=== PATIENT | female | born 1985 | race Caucasian/White ===

== ENCOUNTER 2016-11-11 16:08 | Emergency (ER) | payer BC ==
[2016-11-11 16:31] VITALS: BP 149/98
--- NOTE | 2016-11-11 17:16 | UC ---
UC General HPI - History of Current Complaint Chief Complaint: UCBackPain Stated Complaint: FLANK PRESSURE,DISCOMFORT Time Seen by Provider: 11/11/16 16:55 Hx Obtained From: Patient Onset/Duration: Sudden Onset, Lasting Days Timing: Constant Onset Severity: Moderate Current Severity: Moderate Associated Signs & Symptoms: Positive: Back Pain - Allergy/Home Medications Allergies/Adverse Reactions: Allergies Allergy/AdvReac Type Severity Reaction Status Date / Time No Known Allergies Allergy Verified 11/11/16 16:27 PMH/Surg Hx/FS Hx/Imm Hx Previously Healthy: Yes Endocrine History Of: Denies: Diabetes, Thyroid Disease Cardiovascular History Of: Denies: Cardiac Disorders, Hypertension Respiratory History Of: Denies: COPD, Asthma GI/ History Of: Denies: Ulcer - Surgical History Surgical History: None - Family History Known Family History: Negative: Cardiac Disease, Hypertension - Social History Alcohol Use: None Substance Use Type: None Smoking Status (MU): Former Smoker Type: Cigarettes When Did the Patient Quit Smoking/Using Tobacco: 4 yrs ago - Immunization History Most Recent Influenza Vaccination: May 2015 Most Recent Tetanus Shot: 02/01/15 Most Recent Pneumonia Vaccination: none Review of Systems Constitutional: Negative Skin: Negative Eyes: Negative ENT: Negative Respiratory: Negative Cardiovascular: Negative Gastrointestinal: Negative Genitourinary: Negative Motor: Negative Neurovascular: Negative Musculoskeletal: Myalgia Neurological: Negative Psychological: Anxious All Other Systems Reviewed And Are Negative: Yes Physical Exam Triage Information Reviewed: Yes Appearance: Well-Appearing, Well-Nourished, Pain Distress Vital Signs: Initial Vital Signs Temp 98.4 F 11/11/16 16:27 Pulse 98 11/11/16 16:27 Resp 18 11/11/16 16:27 BP 149/98 11/11/16 16:27 Pulse Ox 97 11/11/16 16:27 Vital Signs Reviewed: Yes Eye Exam: Normal ENT Exam: Normal Dental Exam: Normal Neck exam: Normal Respiratory Exam: Normal Respiratory: Positive: Chest non-tender, Lungs clear, Normal breath sounds Cardiovascular Exam: Normal Cardiovascular: Positive: RRR, No Murmur, Pulses Normal Abdominal Exam: Normal Abdomen Description: Positive: Nontender, No Organomegaly, Soft, CVA Tenderness (R) - neg, CVA Tenderness (L) - neg Bowel Sounds: Positive: Present Musculoskeletal: Positive: Strength Intact, ROM Intact, No Edema, Other: - Left SI joint 1 inch higher then the right. tender under the left ridge of rib cage. side bend to the right increases pain, Neurological Exam: Normal Neurological: Positive: Alert, Muscle Tone Normal Psychological Exam: Normal Skin Exam: Normal Course/Dx - Course Course Of Treatment: hx obtained, exam performed, meds reviewed, educated on proper stretching of back and UA obtained and is negative. patient is relieved and has a follow up appointment with new PCP in 3 days - Differential Dx - Multi-Symptom Provider Diagnoses: anxiety. muscle spasm Discharge - Discharge Plan Condition: Stable Disposition: HOME Patient Education Materials: Musculoskeletal Pain (ED) Additional Instructions: 1. Your urine was negative for infection or hematuria. 2. I recommend that you stretch you back daily and frequently switch from standing to sitting at work. 3. look up [employer] on you tube for great back exercises that will help darlyn and lucia.
== END 2016-11-11 17:23 | disposition home or self-care (01) ==
LOC: UCEAST 16:08
DX: M62.838 Other muscle spasm (principal); F41.9 Anxiety disorder, unspecified; Z87.891 Personal history of nicotine dependence
CPT/HCPCS: 81003; 99211; G0463

== ENCOUNTER 2017-09-14 09:02 | Emergency (ER) | payer BC ==
[2017-09-14] MEDS ORDERED: LORazepam INJ* 2 MG/ML 1 ML VIAL IV PUSH ONE (09:56)
[2017-09-14 10:11] LABS: Urine Appearance Clear; Urine Blood Negative (Negative); Urine Color Yellow; Urine Ketones Negative (Negative); Urine Protein Negative (Negative); Urine Specific Gravity 1.005 (1.010-1.030); Urine Urobilinogen Negative (Negative)
[2017-09-14 10:33] LABS: ABS Basophils 0 10^3/ul (0-0.2); ABS Eosinophils 0 10^3/ul (0-0.6); ABS Lymphocytes 1.5 10^3/ul (1.0-4.8); ABS Monocytes 0.4 10^3/ul (0-0.8); ABS Neutrophils 6.7 10^3/ul (1.5-7.7); ABS Nucleated RBC 0 10^3/ul; Eosinophil % 0.2 % (0-6); Hematocrit 40 % (35-47); Hemoglobin 13.6 g/dl (12.0-16.0); Lymphocyte % 17.5 % (25-47); Mean Corpuscular HGB Conc 34 g/dl (31-36); Mean Corpuscular Hemoglobin 30 pg (27-31); Mean Corpuscular Volume 88 fL (80-97); Mean Platelet Volume 8 um3 (7.4-10.4); Nucleated Red Blood Cells % 0; Platelet Count 234 10^3/ul (150-450); Red Blood Count 4.51 10^6/ul (4.0-5.4); Red Cell Distribution Width 13 % (10.5-15); White Blood Count 8.8 10^3/ul (3.5-10.8)
--- NOTE | 2017-09-14 10:43 | RAD ---
Indication: Mid abdominal pain. Comparison: No relevant prior exams available on the [facility] [place]. Technique: Supine and upright views of the abdomen. Report: No radiographic evidence for free air. Unremarkable bowel gas pattern. Moderate stool in the colon without significant rectal distension. Negative for suspicious calcifications. Unremarkable soft tissue contours. IMPRESSION: Negative two-view abdomen radiograph series.
[2017-09-14 10:47] LABS: EGFR Non-African American 98.6 (>60)
[2017-09-14 12:29] VITALS: BP 127/82
--- NOTE | 2017-09-15 16:43 | ED ---
Shawn Theodore Thomas, scribed for Azar Mike MD on 09/14/17 at 0951 . Abdominal Pain/Female - HPI Summary HPI Summary: The patient is a 32 year old female presenting to the emergency department complaining of upper abdominal pain that began three days ago after she worked out in a spin class and yoga class. The pain is described as pressure. The patient additionally complains of dark stools for the last two days. The patient is anxious. The patient denies diarrhea and constipation. LMP 08/30/17. - History of Current Complaint Chief Complaint: EDAbdPain Stated Complaint: ABD PAIN Time Seen by Provider: 09/14/17 09:44 Hx Obtained From: Patient Hx Last Menstrual Period: 1 week Onset/Duration: Lasting Days - 3, Still Present Timing: Constant Severity Currently: Moderate Pain Intensity: 3 Pain Scale Used: 0-10 Numeric Location: Other - upper abd Radiates: No Character: Other: - Pressure Aggravating Factor(s): Nothing Alleviating Factor(s): Nothing Associated Signs and Symptoms: Positive: Other: - Dark stools. Negative: Fever , Constipation, Diarrhea Allergies/Adverse Reactions: Allergies Allergy/AdvReac Type Severity Reaction Status Date / Time No Known Allergies Allergy Verified 11/11/16 16:27 PMH/Surg Hx/FS Hx/Imm Hx Endocrine/Hematology History: Denies: Hx Diabetes, Hx Thyroid Disease Cardiovascular History: Denies: Hx Hypertension Respiratory History: Denies: Hx Asthma, Hx Chronic Obstructive Pulmonary Disease (COPD) GI History: Reports: Other GI Disorders - Hx hemorrhoids Denies: Hx Ulcer Psychiatric History: Reports: Hx Anxiety, Hx Panic Disorder Infectious Disease History: No Infectious Disease History: Denies: Hx Clostridium Difficile, Hx Hepatitis, Hx Human Immunodeficiency Virus (HIV), Hx of Known/Suspected MRSA, Hx Shingles, Hx Tuberculosis, Hx Known/ Suspected VRE, Hx Known/Suspected VRSA, History Other Infectious Disease, Traveled Outside the [place] in Last 30 Days - Family History Known Family History: Negative: Cardiac Disease, Hypertension - Social History Alcohol Use: None Substance Use Type: Reports: None Smoking Status (MU): Former Smoker Type: Cigarettes Review of Systems Negative: Fever Positive: Abdominal Pain, Other - Dark stools; NEGATIVE: constipation. Negative : Diarrhea Positive: Anxious All Other Systems Reviewed And Are Negative: Yes Physical Exam - Summary Physical Exam Summary: VITAL SIGNS: Reviewed. GENERAL: Patient is a well-developed and nourished female who is lying comfortable in the stretcher. Patient is not in any acute respiratory distress. HEAD AND FACE: Normocephalic and atraumatic. EYES: PERRLA, EOMI x 2, No injected conjunctiva. EARS: Hearing grossly intact. Ear canals and tympanic membranes are WNL. MOUTH: Oropharynx within normal limits. NECK: Supple, trachea is midline, no adenopathy, no JVD. CHEST: Symmetric, no tenderness at palpation LUNGS: Clear to auscultation bilaterally. No wheezing or crackles. CVS: RRR, S1 and S2 present, no murmurs or gallops appreciated. ABDOMEN: Soft, non-tender. No signs of distention. Positive bowel sounds. No rebound no guarding, and no masses palpated. No abdominal bruit or pulsations. RECTAL: Female phys therapist is present. Rectal is exam is normal. EXTREMITIES: FROM in all major joints, no edema, no cyanosis or clubbing. NEURO: Alert and oriented x 3. No acute neurological deficits. Speech is normal. SKIN: Dry and warm Triage Information Reviewed: Yes Vital Signs On Initial Exam: Initial Vitals Temp Pulse Resp BP Pulse Ox 99.4 F 100 16 142/73 100 09/14/17 09:09 09/14/17 09:09 09/14/17 09:09 09/14/17 09:09 09/14/17 09:09 Vital Signs Reviewed: Yes Diagnostics - Vital Signs Vital Signs Temp Pulse Resp BP Pulse Ox 09/14/17 09:09 99.4 F 100 16 142/73 100 - Laboratory Result Diagrams: 09/14/17 10:10 09/14/17 10:10 Lab Statement: Any lab studies that have been ordered have been reviewed, and results considered in the medical decision making process. - Radiology XR Abdomen Xray Interpretation: No Acute Changes - Negative two-view abdomen radiograph series. Dr. Mike has reviewed this report. Radiology Interpretation Completed By: Radiologist - EKG 09:56 Cardiac Rate: NL EKG Rhythm: Sinus Rhythm - at 93 BPM EKG Interpretation: TWI in III. Abdominal Pain Fem Course/Dx - Course Course Of Treatment: The patient is a 32 year old female presenting to the emergency department complaining of upper abdominal pain that began three days ago after she worked out in a spin class and yoga class. The pain is described as pressure. The patient additionally complains of dark stools for the last two days. The patient is anxious. The patient denies diarrhea and constipation. LMP 08/30/17. Test results are without significant abnormality. Occult blood was negative. The patient was given Ativan for anxiety and all of her symptoms subsided. At this point, the patient feels better. She does not have any complaints. She will be discharged home to follow up with primary care. - Diagnoses Provider Diagnoses: Musculoskeletal pain, Anxiety Discharge - Discharge Plan Condition: Stable Disposition: HOME Patient Education Materials: Musculoskeletal Pain (ED) Referrals: [facility] [place] [facility] [Outside] - 3 Days Additional Instructions: Follow up with your primary care provider in three days. If you do not have one , you can use the [facility] [place] service to find one and make an appointment. Return to the emergency department for any new or worsening symptoms. The documentation as recorded by the Shawn berumen Thomas accurately reflects the service I personally performed and the decisions made by me, Azar Mike MD.
== END 2017-09-14 12:29 | disposition home or self-care (01) ==
LOC: ED 09:02
DX: M79.1 Myalgia (principal); F41.9 Anxiety disorder, unspecified; Z87.891 Personal history of nicotine dependence
CPT/HCPCS: 36415; 74019; 80053; 81003; 82270; 83690; 85025; 86140; 93005; 96374; 99283; J2060

== ENCOUNTER 2018-08-23 19:32 | Emergency (ER) | payer BC ==
[2018-08-23 19:48] VITALS: BP 132/108
--- NOTE | 2018-08-23 20:04 | UC ---
UC Dental HPI - HPI Summary HPI Summary: Pt c/o gradual onset of worsening right lower jaw pain and swelling over the last two days. Pt has known dental minnie. in tooth that is painful. - History of Current Complaint Chief Complaint: UCDentalProblem Stated Complaint: DENTAL COMPLAINT Time Seen by Provider: 08/23/18 19:56 Hx Obtained From: Patient Hx Last Menstrual Period: 08/10/18 ?: No Onset/Duration: Gradual Onset, Lasting Days, Still Present Severity: Moderate Pain Intensity: 5 Aggravating Factor(s): Chewing Related History: Swelling - Allergies/Home Medications Allergies/Adverse Reactions: Allergies Allergy/AdvReac Type Severity Reaction Status Date / Time No Known Allergies Allergy Verified 08/23/18 19:41 Home Medications: Home Medications Ibuprofen TAB* [Advil TAB*] 400 mg PO Q6H PRN 08/23/18 [History Confirmed ] PMH/Surg Hx/FS Hx/Imm Hx Previously Healthy: Yes - Surgical History Surgical History: Yes Surgery Procedure, Year, and Place: wisdom teeth - Family History Known Family History: Negative: Cardiac Disease, Hypertension - Social History Occupation: Employed Full-time Lives: With Family Alcohol Use: None Substance Use Type: None Smoking Status (MU): Former Smoker Type: Cigarettes Have You Smoked in the Last Year: No When Did the Patient Quit Smoking/Using Tobacco: 4 yrs ago - Immunization History Most Recent Influenza Vaccination: May 2015 Most Recent Tetanus Shot: 02/01/15 Most Recent Pneumonia Vaccination: none Review of Systems All Other Systems Reviewed And Are Negative: Yes Constitutional: Positive: Negative Skin: Positive: Negative Eyes: Positive: Negative ENT: Positive: Dental Pain Respiratory: Positive: Negative Cardiovascular: Positive: Negative Gastrointestinal: Positive: Negative Genitourinary: Positive: Negative Motor: Positive: Negative Neurovascular: Positive: Negative Musculoskeletal: Positive: Negative Neurological: Positive: Negative Psychological: Positive: Negative Is Patient Immunocompromised?: No Physical Exam Triage Information Reviewed: Yes Appearance: Pain Distress Vital Signs: Initial Vital Signs Temp 98.7 F 08/23/18 19:43 Pulse 81 08/23/18 19:43 Resp 18 08/23/18 19:43 BP 132/108 08/23/18 19:43 Pulse Ox 100 08/23/18 19:43 Vital Signs Reviewed: Yes Eye Exam: Normal ENT Exam: Normal Dental: Positive: Percussion Tenderness @ - right lower jaw, last molar and second to last molar Neck exam: Normal Neck: Positive: Supple Respiratory Exam: Normal Musculoskeletal Exam: Normal Neurological Exam: Normal Psychological Exam: Normal Skin Exam: Normal Dental Complaint Course/Dx - Differential Dx/Diagnosis Differential Diagnosis/Dx: Dental Caries, Fractured Tooth Provider Diagnosis: Pain, dental Discharge - Sign-Out/Discharge Documenting (check all that apply): Patient Departure All imaging exams completed and their final reports reviewed: No Studies - Discharge Plan Condition: Stable Disposition: HOME Prescriptions: Amoxicillin PO (*) [Amoxicillin 500 MG CAP*] 500 mg PO Q12H #14 cap Lidocaine 2% VISCOUS* [Xylocaine 2% Viscous*] 15 ml SWISH SPIT Q4H PRN #1 btl PRN Reason: Pain Patient Education Materials: Toothache (ED) Referrals: Radha Escobar MD [Primary Care Provider] - If Needed - Billing Disposition and Condition Condition: STABLE Disposition: Home - Attestation Statements Provider Attestation: I was available for consult. This patient was seen by the MYRNA. The patient was not presented to, seen by, or examined by me. EK
== END 2018-08-23 20:14 | disposition home or self-care (01) ==
LOC: UCCORT 19:32
DX: K08.89 Other specified disorders of teeth and supporting structures (principal); Z87.891 Personal history of nicotine dependence
CPT/HCPCS: 99212; G0463

== ENCOUNTER 2019-04-03 11:16 | Emergency (ER) | payer BC, OTHER ==
[2019-04-03] MEDS ORDERED: Naproxen TAB* 250 MG PO ONE (11:52)
[2019-04-03 11:54] VITALS: BP 139/97
--- NOTE | 2019-04-03 12:44 | UC ---
Lower Extremity/Ankle HPI - HPI Summary HPI Summary: 33-year-old female presents with complaints of right ankle pain. States last evening she tripped and sustained an inversion injury of the ankle while walking in the parking lot at work. States that she was initially able to walk and bear weight on the ankle however the pain has increased and is now unable to bear weight. She took ibuprofen 800 mg around 3 AM with some improvement in her pain. Notes bruising and swelling to the lateral aspect of the right ankle. Denies any numbness or tingling. - History of Current Complaint Chief Complaint: UCLowerExtremity Stated Complaint: WC-RT ANKLE INJURY Time Seen by Provider: 04/03/19 12:24 Hx Obtained From: Patient Hx Last Menstrual Period: 03/25/19 ?: No Pain Intensity: 7 - Allergies/Home Medications Allergies/Adverse Reactions: Allergies Allergy/AdvReac Type Severity Reaction Status Date / Time No Known Allergies Allergy Verified 04/03/19 11:46 PMH/Surg Hx/FS Hx/Imm Hx Previously Healthy: Yes Psychological History: Anxiety - Surgical History Surgical History: Yes Surgery Procedure, Year, and Place: wisdom teeth - Family History Known Family History: Positive: Non-Contributory - Social History Occupation: Employed Full-time Lives: With Family Alcohol Use: Rare Substance Use Type: None Smoking Status (MU): Former Smoker Type: Cigarettes Have You Smoked in the Last Year: No When Did the Patient Quit Smoking/Using Tobacco: 4 yrs ago - Immunization History Most Recent Influenza Vaccination: May 2015 Most Recent Tetanus Shot: 02/01/15 Most Recent Pneumonia Vaccination: none Review of Systems All Other Systems Reviewed And Are Negative: Yes Constitutional: Positive: Negative Skin: Positive: Bruising Respiratory: Positive: Negative Cardiovascular: Positive: Negative Gastrointestinal: Positive: Negative Genitourinary: Positive: Negative Motor: Negative: Weakness Neurovascular: Negative: Decreased Sensation Musculoskeletal: Positive: Other: - See HPI Neurological: Positive: Negative Is Patient Immunocompromised?: No Physical Exam - Summary Physical Exam Summary: GENERAL APPEARANCE: Well developed, well nourished, alert and cooperative, and appears to be in no acute distress. CARDIAC: Normal S1 and S2. No S3, S4 or murmurs. Rhythm is regular. There is no peripheral edema, cyanosis or pallor. Extremities are warm and well perfused. Capillary refill is less than 2 seconds. Peripheral pulses intact. LUNGS: Clear to auscultation without rales, rhonchi, wheezing or diminished breath sounds. ABDOMEN: Positive bowel sounds. Soft, nondistended, nontender. No guarding or rebound. No masses or hepatosplenomegally. MUSKULOSKELETAL: Normal muscular development. EXTREMITIES: Tenderness over the lateral malleolus of the right ankle with mild ecchymosis and edema. No gross deformity. Circulation and sensation intact. SKIN: Skin normal color, texture and turgor. Triage Information Reviewed: Yes Vital Signs: Initial Vital Signs Temp 99.7 F 04/03/19 11:46 Pulse 90 04/03/19 11:46 Resp 16 04/03/19 11:46 BP 139/97 04/03/19 11:46 Pulse Ox 100 04/03/19 11:46 Vital Signs Reviewed: Yes Diagnostics - Radiology No standard instances Radiology Interpretation Completed By: Radiologist Summary of Radiographic Findings: Order Information: ANKLE RIGHT 3+VWS Accession Number: [id number] CPT: 09246. Indication: Inversion injury. 3 views of the right ankle demonstrates no fracture. No other bone or joint abnormality is identified. IMPRESSION: No fracture of the right ankle is noted. Lower Extremity Course/Dx - Course Course Of Treatment: 33-year-old female presents with complaints of right ankle pain. States last evening she tripped and sustained an inversion injury of the ankle while walking in the parking lot at work. States that she was initially able to walk and bear weight on the ankle however the pain has increased and is now unable to bear weight. She took ibuprofen 800 mg around 3 AM with some improvement in her pain. Notes bruising and swelling to the lateral aspect of the right ankle. Denies any numbness or tingling. Afebrile. Mildly hypertensive otherwise vital signs stable. Patient had tenderness over the lateral malleolus of the right ankle with mild ecchymosis and edema, no gross deformity, circulation and sensation intact, and otherwise unremarkable exam. X-ray showed no acute fracture. Recommending conservative treatment for a right ankle sprain including [id number] analgesics and RICE. Patient was placed in an Jean-Claude wrap and stirrup splint by the RN and instructed to use until pain free. Circulation and sensation were intact pre-and post-application. Patient has her own crutches and was instructed to use these for progressive return to full weightbearing. Patient is to follow-up with orthopedic surgery in 5-7 days if there is no improvement in symptoms. Anticipatory guidance and warning symptoms were reviewed with the patient. Verbalizes understanding and agrees with plan of care. - Differential Dx/Diagnosis Differential Diagnosis/HQI/PQRI: Contusion, Dislocation, Fracture (Closed), Sprain Provider Diagnosis: Right ankle sprain Discharge ED - Sign-Out/Discharge Documenting (check all that apply): Patient Departure All imaging exams completed and their final reports reviewed: Yes - Discharge Plan Condition: Stable Disposition: HOME Patient Education Materials: Ankle Sprain (ED), Crutch Instructions (ED), Ankle Stirrup Splint (ED) Referrals: Radha Escobar MD [Primary Care Provider] - Naun Mathews MD [Medical Doctor] - 5 Days Additional Instructions: The x-ray performed in the clinic today showed no evidence of a fracture. I suspect that you have a sprained ankle. Wear the JEAN-CLAUDE wrap and stirrup splint that was applied in the clinic until you are pain-free. Rest the ankle as much as possible. Use your crutches to slowly increase weight bearing as tolerated. Apply ice to the affected area for 15-20 minutes at least 4 times a day to help with the pain and swelling. Elevate the leg to help reduce swelling. Take acetaminophen (Tylenol) or ibuprofen (Advil, Motrin) according to directions as needed for pain. Follow up with orthopedic surgery in 5-7 days if symptoms do not improve. Call for an appointment. Seek immediate medical attention if you have severe pain not managed with pain medication, you are unable to walk or bear any weight, develop numbness or tingling in the foot or toes, or have any worsening of symptoms. - Billing Disposition and Condition Condition: STABLE Disposition: Home - Attestation Statements Provider Attestation: This patient was not seen by me. I was available for consult. MARYSOL
== END 2019-04-03 12:50 | disposition home or self-care (01) ==
LOC: UCCORT 11:16
DX: S93.401A Sprain of unspecified ligament of right ankle, initial encounter (principal); W18.40XA Slipping, tripping and stumbling without falling, unspecified, initial encounter; Y92.481 Parking lot as the place of occurrence of the external cause; Y99.0 Civilian activity done for income or pay; Z87.891 Personal history of nicotine dependence
CPT/HCPCS: 99213; A9270-GY; G0463

== ENCOUNTER 2021-07-15 13:42 | Inpatient (IN) ==
[2021-07-15] MEDS ORDERED: Lactated Ringers 1000 ml BAG 1,000 ML IV ONE (14:25)
[2021-07-15] MEDS ORDERED: Buffered Lidocaine 1% SYRIN 1 ml INTRADERM ONE (14:25)
[2021-07-15] MEDS ORDERED: Lactated Ringers 1000 ml BAG 1,000 ML IV SCH (15:00)
[2021-07-15 15:51] LABS: ABS Lymphocytes 1.5 10^3/ul (1.0-4.8); ABS Monocytes 0.4 10^3/ul (0-0.8); ABS Neutrophils 6.4 10^3/ul (1.5-7.7); Eosinophil % 0.1 %; Hematocrit 40 % (35-47); Lymphocyte % 18.1 %; Mean Corpuscular HGB Conc 35 g/dL (31-36); Mean Corpuscular Hemoglobin 31 pg (27-31); Mean Corpuscular Volume 90 fL (80-97); Mean Platelet Volume 8.7 fL (7.4-10.4); Platelet Count 214 10^3/uL (150-450); Red Blood Count 4.46 10^6 /uL (3.70-4.87); Red Cell Distribution Width 13 % (10-15); White Blood Count 8.4 10^3/uL (3.5-10.8)
[2021-07-15 16:14] LABS: Albumin 4.1 g/dL (3.2-5.2); Albumin/Globulin Ratio 1.4 (1-3); Calcium 9.5 mg/dL (8.6-10.3); Globulin 2.9 g/dL (2-4); Potassium 3.4 mmol/L (3.5-5.0); Total Bilirubin 0.4 mg/dL (0.2-1.0); eGFR CKD-EPI 121.5 (>60)
[2021-07-15 17:17] LABS: Rapid COVID-19 Molecular Undetected (Undetected)
[2021-07-15 17:22] LABS: Fibrinogen 342.7 mg/dL (110.8-404.3)
[2021-07-15 17:29] LABS: Platelet Count 220 10^3/ul (150-450)
[2021-07-15 17:34] LABS: Activated Partial Thrombo Time 25.7 seconds (26.0-38.0)
[2021-07-15 17:47] LABS: Schistocytes ABSENT
[2021-07-15] MEDS ORDERED: Nalbuphine 10 MG/ML 1 ML VIAL IV PRN (21:20)
[2021-07-15 22:44] LABS: Urine Appearance Clear; Urine Bilirubin Negative (Negative); Urine Blood Negative (Negative); Urine Color Yellow; Urine Glucose Negative (Negative); Urine Ketones Trace (Negative); Urine Nitrite Negative (Negative); Urine Protein Negative (Negative); Urine Specific Gravity 1.024 (1.002-1.030); Urine Urobilinogen Negative (Negative)
[2021-07-15 22:59] LABS: Urine Benzodiazepine Screen None Detected (None Detect); Urine Cannabinoids Screen None Detected (None Detect); Urine Opiates Screen None Detected (None Detect)
[2021-07-16] MEDS ORDERED: Oxytocin in LR 20 UNITS/1,000 ML BAG IVPB ONE (00:09)
[2021-07-16] MEDS ORDERED: Dibucaine 1% OINT 28.35 GM TUBE PR PRN (00:40)
[2021-07-16] MEDS ORDERED: Witch Hazel PAD JAR TOPICAL PRN (00:40)
[2021-07-16] MEDS ORDERED: Glycerin ADULT 2.4 gm SUPP PR PRN (00:40)
[2021-07-16] MEDS ORDERED: diPHENhydraMINE IV 50 MG/ML 1 ml VIAL (BENADRYL) IV ONE (00:47)
[2021-07-16] MEDS ORDERED: Lactated Ringers 1000 ml BAG 1,000 ML IV SCH (01:00)
[2021-07-16 03:09] VITALS: BP 120/66
[2021-07-18 13:53] LABS: Cytomegalovirus IgG Antibody Negative (Negative); Herpes Simplex Virus I IgG AB Positive (Negative); Rubella IgG Antibody Positive; Rubella IgG Antibody Index 1.7; Toxoplasma IgG Antibody Negative (Negative); Toxoplasma IgG Antibody Index <3 IU/mL
[2021-07-18 15:45] LABS: DRVVT Screen Ratio 0.74 ratio (<1.20); LAC APTT 26 sec (25 - 37); Prothrombin Time(LAC) 10.6 sec (9.4 - 12.5)
== END 2021-07-16 09:23 | disposition home or self-care (01) | DRG 560 ==
LOC: MCHOBOUT 13:42 → MCHOB 15:09
PROVIDERS: ADMIT Obstetrics & Gynecology; ATTEND Obstetrics & Gynecology

== ENCOUNTER 2021-09-16 14:46 | Observation (INO) ==
[~2021-09-16 14:46] MED LIST: Buffered Lidocaine 1% SYRIN 1 ml INTRADERM ONE; DiMENhydriNATE IV 50 mg/ml 1 ml VIAL IV PUSH ONE; HYDROcodone/ACETAMIN 5/325 mg TAB PO PRN; Lactated Ringers 1000 ml BAG 1,000 ML IV SCH; Metoclopramide 5 MG/ML VIAL (10 mg) IV PRN; Naloxone 0.4 mg VIAL 0.4 mg/ml 1 ml VIAL IV PRN; Ondansetron 4 mg VIAL 2 MG/ML 2 ml VIAL IV PRN; fentaNYL 100 mcg/2 ml 50 MCG/ML VIAL IV PRN
[2021-09-16] MEDS ORDERED: ceFAZolin 1 GM ADVAN 1 GM ADDV.VIAL IVPB ONE ×2 (14:58→22:15)
[2021-09-16] MEDS ORDERED: DiMENhydriNATE IV 50 mg/ml 1 ml VIAL ONE (15:00)
[2021-09-16] MEDS ORDERED: Bupivacaine 0.5% SDV PF 30ML VIAL ONE (16:01)
[2021-09-16] MEDS ORDERED: Lidocaine 1% w EPI 1:200,000 SDV 30 ML VIAL ONE (16:01)
[2021-09-16] MEDS ORDERED: fentaNYL 250 mcg/5 ml 50 MCG/ML 5 ml VIAL (250 MCG) ONE (16:28)
[2021-09-16] MEDS ORDERED: Rocuronium 50 mg VIAL 10 mg/ml 5 ml VIAL (50 mg) ONE (16:28)
[2021-09-16] MEDS ORDERED: Lidocaine 2% PF 5 ML VIAL ONE (16:29)
[2021-09-16] MEDS ORDERED: Propofol 10 MG/ML 20 ML BTL ONE (16:30)
[2021-09-16] MEDS ORDERED: Midazolam 2 mg/2 ml VIAL 1 mg/ml 2 ml VIAL (2 mg) ONE (16:47)
[2021-09-16] MEDS ORDERED: HYDROmorphone 0.5 MG/0.5 ML SYRINGE ONE ×3 (17:52→20:16)
[2021-09-16] MEDS ORDERED: Dexamethasone IV 4 MG/ML VIAL 1 ml VIAL ONE (18:30)
[2021-09-16] MEDS ORDERED: Ondansetron 4 mg VIAL 2 MG/ML 2 ml VIAL ONE ×2 (18:30→22:04)
[2021-09-16] MEDS ORDERED: Acetaminophen IV 1 GM/100ML 100 ML IV ONE (20:19)
[2021-09-16] MEDS ORDERED: Dexmedetomidine 200 mcg/2 ml 2 ml VIAL (200 mcg) ONE (20:21)
[2021-09-16] MEDS ORDERED: Bupivacaine 0.25% EPI 200,000 30 ML SDV ONE (21:13)
[2021-09-16] MEDS ORDERED: Ondansetron ODT 4 mg TAB 4 MG TAB PO PRN (21:56)
[2021-09-16] MEDS ORDERED: Ondansetron 4 mg VIAL 2 MG/ML 2 ml VIAL IV PRN (21:56)
[2021-09-16] MEDS ORDERED: Lactulose 30 ml UDC PO PRN (21:56)
[2021-09-16] MEDS ORDERED: diPHENhydraMINE IV 50 MG/ML 1 ml VIAL (BENADRYL) IV PRN (21:56)
[2021-09-16] MEDS ORDERED: diPHENhydraMINE 25 mg TAB PO PRN (21:56)
[2021-09-16] MEDS ORDERED: Magnesium Hydroxide LIQ 30 ML UDC PO PRN (21:56)
[2021-09-16] MEDS ORDERED: Metoclopramide 5 MG/ML VIAL (10 mg) ONE (22:04)
[2021-09-16] MEDS ORDERED: ceFAZolin 1 GM ADVAN 1 GM in NS 0.9% 50 ML 50 ML IVPB SCH (22:30)
[2021-09-16] MEDS ORDERED: Lactated Ringers 1000 ml BAG 1,000 ML IV SCH (23:00)
[2021-09-17] MEDS: ceFAZolin 1 GM ADVAN 1 GM in NS 0.9% 50 ML 50 ML IVPB SCH ×2 (01:10→10:01)
[2021-09-17] MEDS: oxyCODONE/Acetamin 5/325 mg TAB PO PRN ×2 (01:27→08:14)
[2021-09-17 06:43] LABS: Calcium 8.6 mg/dL (8.6-10.3); eGFR CKD-EPI 105.7 (>60)
[2021-09-17 06:57] LABS: Hematocrit 31 % (35-47); Mean Platelet Volume 8.3 fL (7.4-10.4); Platelet Count 216 10^3/uL (150-450)
[2021-09-17] MEDS ORDERED: Magnesium Hydroxide LIQ 30 ML UDC PO SCH (09:00)
[2021-09-17] MEDS ORDERED: Vitamin THERAPEUTIC TAB PO SCH (09:00)
[2021-09-17 11:19] VITALS: BP 123/78
== END 2021-09-17 11:45 | disposition home or self-care (01) ==
LOC: OR 14:46 → SSU 14:46
PROVIDERS: ADMIT Internal Medicine; ATTEND Orthopaedic Surgery Sports Medicine

== ENCOUNTER 2022-09-04 10:54 | Inpatient (IN) ==
[2022-09-04] MEDS ORDERED: Buffered Lidocaine 1% SYRIN 1 ml INTRADERM ONE (11:53)
[2022-09-04] MEDS ORDERED: Lactated Ringers 1000 ml BAG 1,000 ML IV ONE (11:53)
[2022-09-04] MEDS ORDERED: Lactated Ringers 1000 ml BAG 1,000 ML IV SCH (12:00)
[2022-09-04] MEDS: miSOPROStol 100 mcg TAB PO SCH ×3 (12:58→22:35)
[2022-09-04 17:17] LABS: Urine Benzodiazepine Screen None Detected (None Detect); Urine Cannabinoids Screen None Detected (None Detect); Urine Opiates Screen None Detected (None Detect)
[2022-09-04] MEDS ORDERED: Dinoprostone 10 MG VAG.SUPP VAGINAL ONE (21:34)
[2022-09-04] MEDS ORDERED: Nalbuphine 10 MG/ML 1 ML VIAL IV PRN (21:46)
[2022-09-04] MEDS ORDERED: Promethazine INJ(RESTRICTED) 25 MG/ML 1 ml VIAL IV PRN (21:47)
[2022-09-05 12:31] LABS: ABS Lymphocytes 1.6 10^3/ul (1.0-4.8); ABS Monocytes 0.8 10^3/ul (0-0.8); ABS Neutrophils 8.7 10^3/ul (1.5-7.7); Eosinophil % 0.4 %; Hematocrit 36 % (35-47); Hemoglobin 12.3 g/dL (12.0-16.0); Lymphocyte % 14.2 %; Mean Corpuscular HGB Conc 34 g/dL (31-36); Mean Corpuscular Hemoglobin 31 pg (27-31); Mean Corpuscular Volume 90 fL (80-97); Mean Platelet Volume 9.7 fL (7.4-10.4); Platelet Count 160 10^3/uL (150-450); Red Blood Count 3.99 10^6 /uL (3.70-4.87); Red Cell Distribution Width 14 % (10-15); White Blood Count 11.1 10^3/uL (3.5-10.8)
[2022-09-05 12:40] LABS: Urine Appearance Cloudy; Urine Bilirubin Negative (Negative); Urine Blood 3+ (Negative); Urine Color Yellow; Urine Glucose Negative (Negative); Urine Ketones 1+ (Negative); Urine Nitrite Negative (Negative); Urine Protein Negative (Negative); Urine Specific Gravity 1.011 (1.002-1.030); Urine Urobilinogen Negative (Negative)
[2022-09-05 12:42] LABS: Urine Bacteria Absent (Absent); Urine Red Blood Cell Trace(0-2/hpf) (Absent); Urine Squamous Epithelial Cell Present (Absent); Urine White Blood Cell Absent (Absent)
[2022-09-05 12:50] LABS: Albumin 3.6 g/dL (3.2-5.2); Albumin/Globulin Ratio 1.5 (1-3); Calcium 9.4 mg/dL (8.6-10.3); Creatinine, Serum 0.48 mg/dL (0.51-0.95); Globulin 2.4 g/dL (2-4); Potassium 3.9 mmol/L (3.5-5.0); Total Bilirubin 0.4 mg/dL (0.2-1.0); Uric Acid 3.3 mg/dL (2.3-6.6)
[2022-09-05] MEDS ORDERED: Buffered Lidocaine 1% SYRIN 1 ml ONE (13:38)
[2022-09-05] MEDS ORDERED: fentaNYL 100 mcg/2 ml 50 MCG/ML VIAL IV SLOW PU ONE (14:17)
[2022-09-05] MEDS ORDERED: Oxytocin in LR 0 MILLI.UNIT/0 ML BAG IV ONE (15:08)
[2022-09-05] MEDS ORDERED: Witch Hazel PAD JAR TOPICAL PRN (16:46)
[2022-09-05] MEDS ORDERED: Oxytocin 10 UNITS/ML 1 ML VIAL IM ONE (16:46)
[2022-09-05] MEDS ORDERED: Dibucaine 1% OINT 28.35 GM TUBE PR PRN (16:46)
[2022-09-05] MEDS ORDERED: Lactated Ringers 1000 ml BAG 1,000 ML IV SCH (17:00)
[2022-09-06 06:34] LABS: ABS Lymphocytes 2.3 10^3/ul (1.0-4.8); ABS Monocytes 1.1 10^3/ul (0-0.8); ABS Neutrophils 10.2 10^3/ul (1.5-7.7); Eosinophil % 0.2 %; Hematocrit 32 % (35-47); Hemoglobin 10.9 g/dL (12.0-16.0); Lymphocyte % 16.7 %; Mean Corpuscular HGB Conc 34 g/dL (31-36); Mean Corpuscular Hemoglobin 31 pg (27-31); Mean Corpuscular Volume 90 fL (80-97); Mean Platelet Volume 9.3 fL (7.4-10.4); Platelet Count 159 10^3/uL (150-450); Red Blood Count 3.55 10^6 /uL (3.70-4.87); Red Cell Distribution Width 14 % (10-15); White Blood Count 13.6 10^3/uL (3.5-10.8)
[2022-09-06] MEDS ORDERED: Influenza vaccine *QUAD* *2022-23* 0.5 ML SYRINGE IM ONE (10:00)
[2022-09-07 08:30] VITALS: BP 138/84
[2022-09-07] MEDS ORDERED: Influenza vaccine *QUAD* *2022-23* 0.5 ML SYRINGE IM ONE (12:00)
== END 2022-09-07 11:58 | disposition home or self-care (01) | DRG 560 ==
LOC: MCHOBOUT 10:54 → MCHOB 11:52
PROVIDERS: ADMIT Registered Nurse; ATTEND Registered Nurse